=== PATIENT | female | born 1940 | race Caucasian/White ===

== ENCOUNTER 2022-01-22 12:02 | Inpatient (IN) ==
[2022-01-22 13:01] LABS: ABS Eosinophils 0.1 10^3/ul (0-0.6); ABS Lymphocytes 0.7 10^3/ul (1.0-4.8); ABS Monocytes 0.5 10^3/ul (0-0.8); ABS Neutrophils 3.2 10^3/ul (1.5-7.7); Eosinophil % 1.4 %; Hematocrit 46 % (35-47); Hemoglobin 15.1 g/dL (12.0-16.0); Lymphocyte % 15.8 %; Mean Corpuscular HGB Conc 33 g/dL (31-36); Mean Corpuscular Hemoglobin 31 pg (27-31); Mean Corpuscular Volume 95 fL (80-97); Nucleated Red Blood Cells % 0.1; Platelet Count 210 10^3/uL (150-450); Red Blood Count 4.88 10^6 /uL (3.70-4.87); Red Cell Distribution Width 14 % (10-15); White Blood Count 4.5 10^3/uL (3.5-10.8)
[2022-01-22 13:06] LABS: INR 1.06 (0.86-1.15)
[2022-01-22 13:39] LABS: Albumin/Globulin Ratio 1.5 (1-3); Calcium 9.7 mg/dL (8.6-10.3); Globulin 2.6 g/dL (2-4); Potassium 4.3 mmol/L (3.5-5.0); Total Bilirubin 0.7 mg/dL (0.2-1.0); Total Protein 6.6 g/dL (6.4-8.9); eGFR CKD-EPI 94.9 (>60)
[2022-01-22 14:12] LABS: High Sensitivity Troponin 1 Hr 9 pg/mL (<15)
[2022-01-22] MEDS ORDERED: Clindamycin 600 MG/D5W BAG 600 MG/50 ML BAG IV ONE (18:07)
[2022-01-22] MEDS ORDERED: Albuterol/Ipratropium NEB.SOL (2.5/0.5 MG) 3 ML NEB.SOLN INH ONE (18:09)
[2022-01-22] MEDS ORDERED: Ondansetron 4 mg VIAL 2 MG/ML 2 ml VIAL IV PRN (19:56)
[2022-01-22] MEDS ORDERED: Albuterol HFA INHALER 8 gm MDI INH PRN (20:00)
[2022-01-22 20:37] LABS: Urine Appearance Clear; Urine Bacteria 1+ (Absent); Urine Bilirubin Negative (Negative); Urine Blood Negative (Negative); Urine Color Yellow; Urine Glucose Negative (Negative); Urine Ketones Negative (Negative); Urine Nitrite Negative (Negative); Urine Protein Negative (Negative); Urine Red Blood Cell Trace(0-2/hpf) (Absent); Urine Specific Gravity 1.015 (1.002-1.030); Urine Squamous Epithelial Cell Present (Absent); Urine Urobilinogen Negative (Negative); Urine White Blood Cell Trace(0-5/hpf) (Absent)
[2022-01-22 20:52] LABS: TSH Ultra Thyroid Stim Horm 1.73 mcIU/mL (0.34-5.60)
[2022-01-22] MEDS: Albuterol/Ipratropium NEB.SOL (2.5/0.5 MG) 3 ML NEB.SOLN INH SCH (21:00)
[2022-01-22] MEDS ORDERED: Enoxaparin 40 MG/0.4 ML SYR SUBCUT SCH (21:00)
[2022-01-22 23:18] LABS: Magnesium 1.9 mg/dL (1.9-2.7)
[2022-01-23 06:29] LABS: Hematocrit 47 % (35-47); Hemoglobin 15.3 g/dL (12.0-16.0); Mean Corpuscular HGB Conc 33 g/dL (31-36); Mean Corpuscular Hemoglobin 31 pg (27-31); Mean Corpuscular Volume 95 fL (80-97); Mean Platelet Volume 8.8 fL (7.4-10.4); Platelet Count 219 10^3/uL (150-450); Red Blood Count 4.95 10^6 /uL (3.70-4.87); Red Cell Distribution Width 14 % (10-15); White Blood Count 7.6 10^3/uL (3.5-10.8)
[2022-01-23 07:12] LABS: Calcium 9.4 mg/dL (8.6-10.3); Potassium 4.7 mmol/L (3.5-5.0); eGFR CKD-EPI 91.2 (>60)
[2022-01-23] MEDS: Albuterol/Ipratropium NEB.SOL (2.5/0.5 MG) 3 ML NEB.SOLN INH SCH ×3 (07:27→15:18)
[2022-01-23] MEDS ORDERED: Albuterol/Ipratropium NEB.SOL (2.5/0.5 MG) 3 ML NEB.SOLN INH PRN (15:43)
[2022-01-23] MEDS: Albuterol HFA INHALER 8 gm MDI INH SCH (21:07)
[2022-01-24] MEDS: Albuterol HFA INHALER 8 gm MDI INH SCH ×4 (07:20→20:20)
[2022-01-24 07:55] LABS: Hematocrit 43 % (35-47); Hemoglobin 14.1 g/dL (12.0-16.0); Mean Corpuscular HGB Conc 33 g/dL (31-36); Mean Corpuscular Hemoglobin 31 pg (27-31); Mean Corpuscular Volume 96 fL (80-97); Mean Platelet Volume 8.3 fL (7.4-10.4); Platelet Count 214 10^3/uL (150-450); Red Blood Count 4.49 10^6 /uL (3.70-4.87); Red Cell Distribution Width 14 % (10-15); White Blood Count 5.9 10^3/uL (3.5-10.8)
[2022-01-24 08:32] LABS: Calcium 9.2 mg/dL (8.6-10.3); HDL Cholesterol 41.6 mg/dL; Potassium 4.2 mmol/L (3.5-5.0); eGFR CKD-EPI 90.9 (>60)
[2022-01-24] MEDS: Mometasone/Formoter 100/5 MDI INH SCH ×2 (14:34→20:20)
[2022-01-25 05:19] LABS: Magnesium 1.9 mg/dL (1.9-2.7); Potassium 4.3 mmol/L (3.5-5.0)
[2022-01-25 05:24] LABS: eGFR CKD-EPI 92.8 (>60)
[2022-01-25] MEDS: Albuterol HFA INHALER 8 gm MDI INH SCH ×4 (08:13→19:53)
[2022-01-25] MEDS: Mometasone/Formoter 100/5 MDI INH SCH ×2 (08:13→19:53)
[2022-01-26 06:52] LABS: ABS Eosinophils 0.1 10^3/ul (0-0.6); ABS Lymphocytes 0.9 10^3/ul (1.0-4.8); ABS Monocytes 0.8 10^3/ul (0-0.8); ABS Neutrophils 5.8 10^3/ul (1.5-7.7); Hematocrit 45 % (35-47); Hemoglobin 14.8 g/dL (12.0-16.0); Lymphocyte % 12.3 %; Mean Corpuscular HGB Conc 33 g/dL (31-36); Mean Corpuscular Hemoglobin 32 pg (27-31); Mean Corpuscular Volume 96 fL (80-97); Mean Platelet Volume 8.4 fL (7.4-10.4); Platelet Count 245 10^3/uL (150-450); Red Blood Count 4.68 10^6 /uL (3.70-4.87); Red Cell Distribution Width 14 % (10-15); White Blood Count 7.7 10^3/uL (3.5-10.8)
[2022-01-26 07:16] LABS: Calcium 9.5 mg/dL (8.6-10.3); Potassium 4.4 mmol/L (3.5-5.0); eGFR CKD-EPI 89.8 (>60)
[2022-01-26] MEDS: Albuterol HFA INHALER 8 gm MDI INH SCH ×4 (07:28→20:37)
[2022-01-26] MEDS: Mometasone/Formoter 100/5 MDI INH SCH ×2 (07:29→20:37)
[2022-01-27] MEDS: Albuterol HFA INHALER 8 gm MDI INH SCH ×4 (09:22→19:06)
[2022-01-27] MEDS: Mometasone/Formoter 100/5 MDI INH SCH ×2 (09:22→19:07)
[2022-01-27] MEDS ORDERED: Vancomycin per Pharmacy 1 EA NOTE FOLLOW UP SCH (12:00)
[2022-01-27] MEDS: cefTRIAXone 1 gm/50 mL D5W 1 GM/50 ML BAG IV SCH (14:13)
[2022-01-27] MEDS: Vancomycin 1,000 MG in NS 0.9% 250 ml 250 ML IVPB ONE ×2 (14:13→17:04)
[2022-01-27] MEDS: Furosemide 20 mg/2 ml IV VIAL IV ONE ×4 (14:14→20:03)
[2022-01-27] MEDS: Vancomycin 1,250 MG in NS 0.9% 250 ml 250 ML IVPB SCH (19:18)
[2022-01-28] MEDS ORDERED: Vancomycin 1,250 MG in NS 0.9% 250 ml 250 ML IVPB SCH (04:00)
[2022-01-28 05:53] LABS: ABS Basophils 0.1 10^3/ul (0-0.2); ABS Eosinophils 0.2 10^3/ul (0-0.6); ABS Lymphocytes 0.9 10^3/ul (1.0-4.8); ABS Monocytes 0.8 10^3/ul (0-0.8); ABS Neutrophils 4.6 10^3/ul (1.5-7.7); Eosinophil % 2.7 %; Hematocrit 44 % (35-47); Hemoglobin 14.4 g/dL (12.0-16.0); Lymphocyte % 14.4 %; Mean Corpuscular HGB Conc 33 g/dL (31-36); Mean Corpuscular Hemoglobin 32 pg (27-31); Mean Corpuscular Volume 95 fL (80-97); Mean Platelet Volume 8.1 fL (7.4-10.4); Platelet Count 227 10^3/uL (150-450); Red Blood Count 4.57 10^6 /uL (3.70-4.87); Red Cell Distribution Width 14 % (10-15); White Blood Count 6.6 10^3/uL (3.5-10.8)
[2022-01-28 06:26] LABS: Albumin 3.6 g/dL (3.2-5.2); Calcium 9.2 mg/dL (8.6-10.3); Potassium 4.4 mmol/L (3.5-5.0); Total Bilirubin 0.6 mg/dL (0.2-1.0)
[2022-01-28 06:32] LABS: Albumin/Globulin Ratio 1.7 (1-3); C Reactive Protein 10.94 mg/L (<8.01); Globulin 2.1 g/dL (2-4); Total Protein 5.7 g/dL (6.4-8.9); eGFR CKD-EPI 88.9 (>60)
[2022-01-28] MEDS: Albuterol HFA INHALER 8 gm MDI INH SCH ×3 (08:27→20:23)
[2022-01-28] MEDS: Mometasone/Formoter 100/5 MDI INH SCH ×2 (08:29→20:23)
[2022-01-28] MEDS: cefTRIAXone 1 gm/50 mL D5W 1 GM/50 ML BAG IV SCH (11:17)
[2022-01-28] MEDS ORDERED: Furosemide 20 mg/2 ml IV VIAL IV ONE (14:39)
[2022-01-28] MEDS: Vancomycin 1,250 MG in NS 0.9% 250 ml 250 ML IVPB SCH (18:04)
[2022-01-29] MEDS: Albuterol HFA INHALER 8 gm MDI INH SCH ×3 (03:12→12:22)
[2022-01-29] MEDS ORDERED: Vancomycin Trough Check NOTE FOLLOW UP ONE (05:30)
[2022-01-29 06:27] LABS: Vancomycin Trough 9.3 mcg/mL; eGFR CKD-EPI 88.2 (>60)
[2022-01-29] MEDS: Vancomycin 1,250 MG in NS 0.9% 250 ml 250 ML IVPB SCH (07:24)
[2022-01-29] MEDS: Mometasone/Formoter 100/5 MDI INH SCH (07:32)
[2022-01-29 11:06] VITALS: BP 106/55
[2022-01-29] MEDS: cefTRIAXone 1 gm/50 mL D5W 1 GM/50 ML BAG IV SCH (11:53)
[2022-01-31] MEDS ORDERED: Vancomycin Trough Check NOTE FOLLOW UP ONE (05:30)
== END 2022-01-29 14:50 | disposition home health service (06) | DRG 191 ==
LOC: ED 12:02 → EDHOLD 12:02 → SUATTDRO 19:56 → MEDTELE 23:52 → SUATTDRO 01-24 16:15
PROVIDERS: ADMIT Student in an Organized Health Care Education/Training Program; ATTEND Student in an Organized Health Care Education/Training Program

== ENCOUNTER 2022-03-29 15:59 | Inpatient (IN) ==
[2022-03-29] MEDS ORDERED: methylPREDNISolone SOD SUCC 125 mg 2 ML VIAL IV ONE (16:32)
[2022-03-29] MEDS ORDERED: Albuterol/Ipratropium NEB.SOL (2.5/0.5 MG) 3 ML NEB.SOLN INH ONE (16:32)
[2022-03-29] MEDS ORDERED: cefTRIAXone 1 gm/50 mL D5W 1 GM/50 ML BAG IV ONE (16:34)
[2022-03-29 16:51] LABS: PCO2 Arterial 37 mmHg (35-45); PO2 Arterial 83 mmHg (80-100)
[2022-03-29 17:30] LABS: INR 1.84 (0.89-1.11)
[2022-03-29 17:42] LABS: ALT 27 U/L (7-52); Albumin 3.4 g/dL (3.2-5.2); Albumin/Globulin Ratio 1.3 (1-3); Alkaline Phosphatase 106 U/L (35-149); Blood Urea Nitrogen 27 mg/dL (6-24); C Reactive Protein 156.63 mg/L (<8.01); CO2 Carbon Dioxide 25 mmol/L (22-32); Calcium 9.1 mg/dL (8.6-10.3); Chloride 97 mmol/L (101-111); Globulin 2.6 g/dL (2-4); Glucose 143 mg/dL (70-100); Sodium 131 mmol/L (135-145); eGFR CKD-EPI 73.8 (>60)
[2022-03-29 17:48] LABS: Hematocrit 45 % (35-47); Hemoglobin 14.6 g/dL (12.0-16.0); Mean Corpuscular HGB Conc 33 g/dL (31-36); Mean Corpuscular Hemoglobin 30 pg (27-31); Mean Corpuscular Volume 93 fL (80-97); Mean Platelet Volume 8.1 fL (7.4-10.4); Platelet Count 238 10^3/uL (150-450); Red Cell Distribution Width 15 % (10-15); White Blood Count 18.2 10^3/uL (3.5-10.8)
[2022-03-29] MEDS ORDERED: Furosemide 40 mg/4 ml IV VIAL IV ONE (17:49)
[2022-03-29] MEDS ORDERED: Iohexol 350 (CONTRAST) 500 ML MDV IV ONE (18:00)
[2022-03-29 18:01] LABS: Anion Gap 9 mmol/L (2-11)
[2022-03-29] MEDS ORDERED: Iodixanol (CONTRAST) 320 MG/ML 100 ML SDV IV ONE (18:27)
[2022-03-29 19:14] LABS: ABS Lymphocytes 0.4 10^3/ul (1.0-4.8); ABS Monocytes 0.4 10^3/ul (0-0.8); ABS Neutrophils 17.3 10^3/ul (1.5-7.7); Eosinophil % 0.1 %; Lymphocyte % 2.1 %
[2022-03-29 19:52] LABS: High Sensitivity Troponin 1 Hr 46 pg/mL (<15)
[2022-03-29] MEDS ORDERED: Vancomycin 1,000 MG in NS 0.9% 250 ml 250 ML IVPB ONE (20:36)
[2022-03-29 20:38] LABS: Magnesium 1.6 mg/dL (1.9-2.7); Phosphorus 3.6 mg/dL (2.5-5.0)
[2022-03-29] MEDS ORDERED: Magnesium Sulf 4 GM/100 ML IV 4,000 MG/100 ML BAG IVPB ONE (20:45)
[2022-03-29] MEDS ORDERED: Vancomycin 1,750 MG in NS 0.9% 500 ml BAG 500 ML IVPB ONE (21:00)
[2022-03-29] MEDS ORDERED: Vancomycin per Pharmacy 1 EA NOTE FOLLOW UP SCH (21:00)
[2022-03-29 21:46] LABS: Urine Appearance Clear; Urine Bilirubin Negative (Negative); Urine Color Yellow; Urine Glucose Negative (Negative); Urine Ketones Negative (Negative)
[2022-03-29 21:47] LABS: Urine Blood Negative (Negative); Urine Nitrite Negative (Negative); Urine Protein Negative (Negative); Urine Urobilinogen 0.2 (Negative) (Negative)
[2022-03-29] MEDS ORDERED: Cefepime 2 GM IV - ED ONCE IV ONE (22:00)
[2022-03-29] MEDS: Albuterol/Ipratropium NEB.SOL (2.5/0.5 MG) 3 ML NEB.SOLN INH SCH (23:25)
[2022-03-30] MEDS: Cefepime 2 GM in Dextrose 2 GM/50 ML BAG IV SCH ×4 (00:31→22:13)
[2022-03-30] MEDS: methylPREDNISolone SOD SUCC 40 mg/ml 1 ml VIAL IV SCH ×2 (01:18→08:09)
[2022-03-30] MEDS: Albuterol/Ipratropium NEB.SOL (2.5/0.5 MG) 3 ML NEB.SOLN INH SCH ×5 (03:43→19:19)
[2022-03-30 04:21] LABS: Hematocrit 42 % (35-47); Hemoglobin 13.8 g/dL (12.0-16.0); Mean Corpuscular HGB Conc 33 g/dL (31-36); Mean Corpuscular Hemoglobin 31 pg (27-31); Mean Corpuscular Volume 93 fL (80-97); Mean Platelet Volume 7.5 fL (7.4-10.4); Platelet Count 221 10^3/uL (150-450); Red Blood Count 4.53 10^6 /uL (3.70-4.87); Red Cell Distribution Width 15 % (10-15); White Blood Count 19.2 10^3/uL (3.5-10.8)
[2022-03-30 04:44] LABS: Magnesium 2.6 mg/dL (1.9-2.7); Phosphorus 3.7 mg/dL (2.5-5.0); eGFR CKD-EPI 80.9 (>60)
[2022-03-30 04:50] LABS: RBC Morphology Normal (Normal)
[2022-03-30 04:51] LABS: ABS Lymphocytes 0.4 10^3/ul (1.0-4.8); ABS Monocytes 0.4 10^3/ul (0-0.8); ABS Neutrophils 18.4 10^3/ul (1.5-7.7); Eosinophil % 0.2 %; Lymphocyte % 2.3 %
[2022-03-30] MEDS ORDERED: Furosemide 40 mg/4 ml IV VIAL IV SLOW PU ONE (07:44)
[2022-03-30] MEDS: Mometasone/Formoter 200/5 MDI INH SCH ×2 (07:46→19:19)
[2022-03-30] MEDS: Vancomycin 1,250 MG in NS 0.9% 250 ml 250 ML IVPB SCH ×2 (08:42→20:09)
[2022-03-30] MEDS ORDERED: Lidocaine 2% JELLY 6 ML Topical TOPICAL ONE ×2 (11:50→11:51)
[2022-03-31] MEDS: Albuterol/Ipratropium NEB.SOL (2.5/0.5 MG) 3 ML NEB.SOLN INH SCH ×4 (01:33→19:05)
[2022-03-31 03:34] LABS: Hematocrit 41 % (35-47); Hemoglobin 13.5 g/dL (12.0-16.0); Mean Corpuscular HGB Conc 33 g/dL (31-36); Mean Corpuscular Hemoglobin 30 pg (27-31); Mean Corpuscular Volume 92 fL (80-97); Mean Platelet Volume 7.8 fL (7.4-10.4); Platelet Count 230 10^3/uL (150-450); Red Blood Count 4.46 10^6 /uL (3.70-4.87); Red Cell Distribution Width 15 % (10-15); White Blood Count 21.8 10^3/uL (3.5-10.8)
[2022-03-31 03:36] LABS: ABS Lymphocytes 0.4 10^3/ul (1.0-4.8); ABS Monocytes 1.1 10^3/ul (0-0.8); ABS Neutrophils 20.2 10^3/ul (1.5-7.7); Lymphocyte % 1.7 %
[2022-03-31 04:05] LABS: Calcium 9.4 mg/dL (8.6-10.3); Magnesium 2.4 mg/dL (1.9-2.7); Phosphorus 3.3 mg/dL (2.5-5.0); Potassium 4.2 mmol/L (3.5-5.0); eGFR CKD-EPI 92.4 (>60)
[2022-03-31] MEDS: Cefepime 2 GM in Dextrose 2 GM/50 ML BAG IV SCH (05:11)
[2022-03-31] MEDS: Mometasone/Formoter 200/5 MDI INH SCH ×2 (07:53→19:05)
[2022-03-31] MEDS ORDERED: Vancomycin Trough Check NOTE FOLLOW UP ONE (08:30)
[2022-03-31] MEDS ORDERED: Furosemide 40 mg/4 ml IV VIAL IV SLOW PU ONE ×2 (09:04→17:48)
[2022-03-31] MEDS: Vancomycin 1,250 MG in NS 0.9% 250 ml 250 ML IVPB SCH (09:42)
[2022-03-31] MEDS ORDERED: Furosemide 20 mg/2 ml IV VIAL IV SLOW PU ONE (10:11)
[2022-03-31] MEDS ORDERED: Albuterol HFA INHALER 8 gm MDI INH PRN (10:55)
[2022-03-31] MEDS ORDERED: Albuterol/Ipratropium NEB.SOL (2.5/0.5 MG) 3 ML NEB.SOLN INH PRN (11:05)
[2022-03-31] MEDS ORDERED: Piperacillin/Tazobac ADVAN 3.375 GM in NS 0.9% 100 ml BAG 100 ML IV ONE (11:55)
[2022-03-31] MEDS ORDERED: Zosyn per Pharmacy NOTE FOLLOW UP SCH (12:00)
[2022-03-31] MEDS ORDERED: Perflutren Lipid Microsphere 3 ML VIAL ONE (14:54)
[2022-03-31] MEDS: ZOSYN 3.375 GM Q8H per EXTENDED INFUSION IV SCH (17:11)
[2022-03-31] MEDS ORDERED: Lidocaine 4% GEL 10 GM TUBE TOPICAL ONE (17:25)
[2022-03-31] MEDS ORDERED: Lidocaine 2% JELLY 6 ML Topical TOPICAL ONE ×2 (17:26→17:29)
[2022-03-31] MEDS: dilTIAZem 30 MG TAB PO SCH (18:11)
[2022-04-01] MEDS: Albuterol/Ipratropium NEB.SOL (2.5/0.5 MG) 3 ML NEB.SOLN INH SCH ×3 (00:29→13:07)
[2022-04-01] MEDS: ZOSYN 3.375 GM Q8H per EXTENDED INFUSION IV SCH ×3 (00:36→17:06)
[2022-04-01] MEDS: dilTIAZem 30 MG TAB PO SCH ×4 (00:36→17:06)
[2022-04-01 05:33] LABS: ABS Lymphocytes 0.7 10^3/ul (1.0-4.8); ABS Neutrophils 16.6 10^3/ul (1.5-7.7); Hematocrit 41 % (35-47); Hemoglobin 13.4 g/dL (12.0-16.0); Lymphocyte % 3.6 %; Mean Corpuscular HGB Conc 33 g/dL (31-36); Mean Corpuscular Hemoglobin 30 pg (27-31); Mean Corpuscular Volume 93 fL (80-97); Mean Platelet Volume 8.5 fL (7.4-10.4); Platelet Count 233 10^3/uL (150-450); Red Blood Count 4.42 10^6 /uL (3.70-4.87); Red Cell Distribution Width 15 % (10-15); White Blood Count 18.3 10^3/uL (3.5-10.8)
[2022-04-01 05:50] LABS: Calcium 9.1 mg/dL (8.6-10.3); Potassium 3.9 mmol/L (3.5-5.0); eGFR CKD-EPI 91.2 (>60)
[2022-04-01] MEDS: Mometasone/Formoter 200/5 MDI INH SCH ×2 (08:05→19:18)
[2022-04-01 08:43] LABS: C Reactive Protein 180.7 mg/L (<8.01)
[2022-04-01] MEDS ORDERED: Lidocaine 2% JELLY 6 ML Topical TOPICAL ONE (12:22)
[2022-04-01] MEDS ORDERED: Furosemide 20 mg/2 ml IV VIAL IV SLOW PU ONE (12:23)
[2022-04-01 15:33] LABS: Body Fluid Appearance Cloudy; Body Fluid Color Yellow; Body Fluid Source Synovial Fluid
[2022-04-01] MEDS ORDERED: Albuterol/Ipratropium NEB.SOL (2.5/0.5 MG) 3 ML NEB.SOLN INH PRN (16:40)
[2022-04-01] MEDS: Enoxaparin 40 MG/0.4 ML SYR SUBCUT SCH (21:35)
[2022-04-01 22:23] LABS: Body Fluid Mono 12 %; Body Fluid Total Cells Counted 34; Body Fluid WBC 602 /mcL
[2022-04-02] MEDS: ZOSYN 3.375 GM Q8H per EXTENDED INFUSION IV SCH ×3 (00:26→17:54)
[2022-04-02 05:45] LABS: ABS Lymphocytes 0.9 10^3/ul (1.0-4.8); Eosinophil % 0.1 %; Hematocrit 41 % (35-47); Hemoglobin 13.7 g/dL (12.0-16.0); Lymphocyte % 6.3 %; Mean Corpuscular HGB Conc 34 g/dL (31-36); Mean Corpuscular Hemoglobin 32 pg (27-31); Mean Corpuscular Volume 94 fL (80-97); Mean Platelet Volume 7.7 fL (7.4-10.4); Platelet Count 254 10^3/uL (150-450); Red Blood Count 4.35 10^6 /uL (3.70-4.87); Red Cell Distribution Width 15 % (10-15); White Blood Count 13.9 10^3/uL (3.5-10.8)
[2022-04-02 06:01] LABS: Calcium 9.1 mg/dL (8.6-10.3); Potassium 3.7 mmol/L (3.5-5.0)
[2022-04-02] MEDS: Mometasone/Formoter 200/5 MDI INH SCH ×2 (08:18→19:16)
[2022-04-02] MEDS ORDERED: Furosemide 40 mg/4 ml IV VIAL IV ONE (11:06)
[2022-04-02] MEDS ORDERED: Iohexol 350 (CONTRAST) 500 ML MDV IV ONE (12:39)
[2022-04-02 16:26] LABS: Urine Appearance Clear; Urine Bilirubin Negative (Negative); Urine Blood Negative (Negative); Urine Color Straw; Urine Glucose Negative (Negative); Urine Ketones Negative (Negative); Urine Nitrite Negative (Negative); Urine Protein Negative (Negative); Urine Specific Gravity 1.015 (1.005-1.030); Urine Urobilinogen 0.2 (Negative) (Negative); Urine pH 5.5 (5.0-9.0)
[2022-04-02] MEDS: Enoxaparin 40 MG/0.4 ML SYR SUBCUT SCH (20:59)
[2022-04-03] MEDS: ZOSYN 3.375 GM Q8H per EXTENDED INFUSION IV SCH ×2 (00:37→08:36)
[2022-04-03] MEDS ORDERED: Potassium Chlor 20 meq TAB.ER PO ONE (07:49)
[2022-04-03] MEDS: Mometasone/Formoter 200/5 MDI INH SCH ×2 (08:13→20:00)
[2022-04-03] MEDS: Furosemide 40 mg/4 ml IV VIAL IV SCH (08:36)
[2022-04-03] MEDS: cefTRIAXone 2 gm/50 mL D5W 2 GM/50 ML BAG IV SCH (13:13)
[2022-04-03] MEDS ORDERED: Furosemide 40 mg/4 ml IV VIAL IV ONE (16:00)
[2022-04-04 06:38] LABS: C Reactive Protein 29.96 mg/L (<8.01); Calcium 9.3 mg/dL (8.6-10.3); Magnesium 1.8 mg/dL (1.9-2.7); eGFR CKD-EPI 88.5 (>60)
[2022-04-04] MEDS: Furosemide 40 mg/4 ml IV VIAL IV SCH (08:10)
[2022-04-04] MEDS: Mometasone/Formoter 200/5 MDI INH SCH ×2 (08:25→19:25)
[2022-04-04] MEDS: cefTRIAXone 2 gm/50 mL D5W 2 GM/50 ML BAG IV SCH (11:48)
[2022-04-05] MEDS: Furosemide 40 mg/4 ml IV VIAL IV SCH (08:21)
[2022-04-05] MEDS: Mometasone/Formoter 200/5 MDI INH SCH ×2 (08:28→21:59)
[2022-04-05 08:54] LABS: Calcium 9.3 mg/dL (8.6-10.3); Potassium 4.5 mmol/L (3.5-5.0)
[2022-04-05] MEDS: cefTRIAXone 2 gm/50 mL D5W 2 GM/50 ML BAG IV SCH (13:06)
[2022-04-05] MEDS ORDERED: COVID VACC, MONOVAL PFIZER-TRIS 30 MCG/0.3 ML SYR IM ONE (17:00)
[2022-04-06] MEDS: Mometasone/Formoter 200/5 MDI INH SCH (07:28)
[2022-04-06 10:48] VITALS: BP 116/62
[2022-04-06] MEDS: cefTRIAXone 2 gm/50 mL D5W 2 GM/50 ML BAG IV SCH (11:11)
[2022-04-06 18:38] LABS: B. garinii/B. afzellii PCR Negative (Negative)
== END 2022-04-06 14:00 | disposition home or self-care (01) | DRG 291 ==
LOC: ED 15:59 → EDHOLD 20:02 → SUATTDRO 20:02 → ICU 21:34 → MED 04-01 00:12
PROVIDERS: ADMIT Internal Medicine; ATTEND Internal Medicine